=== PATIENT | male | born 1980 | race American Indian/Alaskan Native ===

== ENCOUNTER 2021-05-14 04:34 | Emergency (ER) | payer SELFPAY ==
[2021-05-14 05:29] VITALS: BP 122/85
--- NOTE | 2021-05-14 09:51 | Emergency Department Report ---
ED General Adult HPI - General Chief complaint: Adult Asthma Stated complaint: SOB Time Seen by Provider: 05/14/21 09:47 Source: patient Mode of arrival: Ambulatory Limitations: No Limitations - History of Present Illness Initial comments: 40-year-old male patient with history of asthma presents to the emergency department with complaints of productive cough, shortness of breath, and nasal congestion for approximately 1 week. He is out of his inhaler and nebulizer medications. States he has been treated with Amoxicillin for "infections" on multiple prior occasions by his primary care provider each time he produces green sputum. Patient travels frequently for work. Unsure if he has been febrile. Denies abdominal pain, nausea, vomiting, diarrhea, headache, neck stiffness, hemoptysis. Denies all other complaints at this time. - Related Data Previous Rx's Medication Instructions Recorded Last Taken Type Albuterol Sulfate [Proair 90 mcg IH Q4H #1 aer.pow.ba 05/14/21 Unknown Rx Respiclick] predniSONE [Deltasone] 20 mg PO QDAY 5 Days tab 05/14/21 Unknown Rx Allergies Allergy/AdvReac Type Severity Reaction Status Date / Time No Known Allergies Allergy Unverified 05/14/21 05:19 ED Review of Systems ROS: Stated complaint: SOB Other details as noted in HPI Other: GENERAL: Negative for fever, chills, weight change, anorexia, fatigue. ENT: Positive for congestion. CARDIOVASCULAR: Negative for chest pain, palpitations, lower extremity swelling. PULMONARY: Positive for cough and shortness of breath. GASTROINTESTINAL: Negative for abdominal pain, nausea, vomiting, diarrhea, constipation. MUSCULOSKELETAL: Negative for joint pain, joint swelling, myalgias, back pain, neck pain. NEUROLOGICAL: Negative for headache, seizure, syncope, paresthesias, weakness. INTEGUMENTARY: Negative for erythema, rash, diaphoresis, laceration, ecchymosis. HEMATOLOGICAL: Negative for hemoptysis, hematemesis, hematochezia, hematuria. PSYCHIATRIC: Negative for hallucinations, suicidal ideation, homicidal ideation, anxiety, depression. ED Past Medical Hx - Past Medical History Previous Medical History?: Yes Hx Asthma: Yes - Surgical History Past Surgical History?: No - Social History Smoking Status: Never Smoker Substance Use Type: None - Medications Home Medications: Home Medications Medication Instructions Recorded Confirmed Last Taken Type Albuterol Sulfate [Proair 90 mcg IH Q4H #1 aer.pow.ba 05/14/21 Unknown Rx Respiclick] predniSONE [Deltasone] 20 mg PO QDAY 5 Days tab 05/14/21 Unknown Rx ED Physical Exam - General Limitations: No Limitations - Other Other exam information: General: Awake and alert. No acute distress. Head: Atraumatic, normocephalic. Eyes: EOMI. Pupils are equal and round. Normal sclera and conjunctiva. ENT: Clear rhinorrhea present. Oral mucosa is moist. Normal pharyngeal exam. Neck: Supple. No lymphadenopathy. Pulmonary: No respiratory distress. Mild expiratory wheezing bilaterally. Speaking in full sentences without difficulty. Cardiac: Regular rate and rhythm. Pulses are palpable and equal bilaterally. No lower extremity cyanosis or edema. Skin: Warm and dry. No rashes. Abdomen: Soft, non-tender, non-protuberant. No guarding, rigidity, or rebound. Bowel sounds are normal. No organomegaly or masses noted. Back: Normal alignment. No CVA tenderness. Extremities: Symmetrical. Full range of motion intact. Neurological: Alert and oriented, appropriately interactive, no focal deficits. Psych: Cooperative. Appropriate mood and affect. Speech is evenly metered. Thoughts are logically construed. ED Course Vital Signs 05/14/21 05:22 Temperature 98.2 F Pulse Rate 73 Respiratory 18 Rate Blood Pressure 122/85 O2 Sat by Pulse 94 Oximetry ED Medical Decision Making - Medical Decision Making Differential diagnosis including but not limited to: asthma exacerbation, pneumonia, pleural effusion, pertussis, influenza, viral upper respiratory infection On reevaluation, patient remains stable. No hypoxia, no respiratory distress. Chest x-ray without acute process. History and exam findings suggestive of asthma exacerbation, likely attributable to viral upper respiratory infection, in the setting of sneezing and nasal congestion. There is no clinical indication for empiric antibiotic therapy or emergent breathing treatment. Patient will be discharged home with short course of glucocorticoids and beta agonist inhaler. Emphasized the importance of establishing care with a local primary care provider for prevention of future asthma flareups. Patient expressed understanding and is agreeable to plan of care. Disease transmission precautions discussed. Strict return precautions provided. Repeat exam is unremarkable and benign. History, exam, diagnostic testing, and current condition do not suggest worrisome pathology to warrant further testing, continued ED treatment, admission, or surgical evaluation at this point. Given the low probability of a significant medical illness, it would be more likely to result in harm than benefit to perform further testing at this stage. Discussed findings, presumptive diagnosis, need for follow-up and specific signs/symptoms that should prompt immediate return to the emergency department. Instructions were explained in detail to the patient in addition to giving written discharge information. Patient expressed understanding and was given the opportunity to ask questions, all of which were satisfactorily answered prior to discharge home. Critical care attestation.: If time is entered above; I have spent that time in minutes in the direct care of this critically ill patient, excluding procedure time. ED Disposition Clinical Impression: Acute nasopharyngitis Asthma exacerbation Qualifiers: Asthma severity: unspecified severity Asthma persistence: unspecified Qualified Code(s): J45.901 - Unspecified asthma with (acute) exacerbation Disposition: TO HOME OR SELFCARE Is pt being admited?: No Does the pt Need Aspirin: No Condition: Stable Instructions: Upper Respiratory Infection, Adult, [id number], Asthma, Adult, [id number] Additional Instructions: Use Albuterol as directed. Take Prednisone with food as directed. Use [id number] cough/cold remedies as needed. Honey is an excellent natural cough suppressant. Exposure to warm humidified air may relieve congestion. Rest. Drink plenty of fluids. Wash hands frequently to prevent disease transmission. Do not share food or drinks with others. Follow-up with primary care provider this week. Call Sunday to schedule an appointment. See referral information below. Return to the emergency department immediately for new or worsening symptoms. Prescriptions: predniSONE [Deltasone] 20 mg PO QDAY 5 Days tab Albuterol Sulfate [Proair Respiclick] 90 mcg IH Q4H #1 aer.pow.ba Referrals: PHIL MEDINA MD [Staff Physician] - 3-5 Days [facility] [Outside] - 3-5 Days [facility] [Outside] - 3-5 Days [facility] [Outside] - 3-5 Days [facility] [Provider Group] - 3-5 Days Time of Disposition: 10:31
--- NOTE | 2021-05-14 10:26 | XRay Report ---
XR chest routine 2V INDICATION / CLINICAL INFORMATION: productive cough; hx of asthma. COMPARISON: None available. FINDINGS: SUPPORT DEVICES: None. HEART /PULMONARY VASCULATURE: No significant abnormality. LUNGS / PLEURA: No significant pulmonary or pleural abnormality. No pneumothorax. ADDITIONAL FINDINGS: No significant additional findings. IMPRESSION: 1. No acute findings. Signer Name: Eagle Gupta MD Signed: 05/14/2021 10:22 AM Workstation Name: [id number]
== END 2021-05-14 10:49 | disposition home or self-care (01) ==
LOC: ED 04:34
DX: J45.901 Unspecified asthma with (acute) exacerbation (principal); J00 Acute nasopharyngitis [common cold]; Z79.899 Other long term (current) drug therapy
CPT/HCPCS: 71046; 99283